=== PATIENT | female | born 1940 | race Caucasian/White ===

== ENCOUNTER 2016-11-05 11:50 | Emergency (ER) | payer MEDICARE, OTHER ==
[~2016-11-05] VITALS: Ht 167.6 cm; Wt 58.5 kg
[2016-11-05 12:11] VITALS: BP 174/111
== END 2016-11-05 14:52 | disposition home or self-care (01) ==
LOC: ER 11:50
DX: S00.83XA Contusion of other part of head, initial encounter (principal); W18.39XA Other fall on same level, initial encounter; Y93.01 Activity, walking, marching and hiking; Y92.89 Other specified places as the place of occurrence of the external cause; Y99.8 Other external cause status
CPT/HCPCS: 70450

== ENCOUNTER 2023-02-24 07:33 | Emergency (ER) | payer OTHER ==
[~2023-02-24] VITALS: Ht 167.6 cm; Wt 63.6 kg
[2023-02-24] MEDS ORDERED: ACETAMINOPHEN 500 MG TAB PO ONE (08:45)
[2023-02-24 09:30] VITALS: BP 148/92; PULSE 87; RESP 16; TEMP 98.4; O2SAT 97
[2023-02-24] MEDS ORDERED: ACET-1080 PO (09:33)
== END 2023-02-24 09:36 | disposition home or self-care (01) ==
LOC: ER 07:33
DX: S20.212A Contusion of left front wall of thorax, initial encounter (principal); W03.XXXA Other fall on same level due to collision with another person, initial encounter; Y93.89 Activity, other specified; Y92.89 Other specified places as the place of occurrence of the external cause; Y99.8 Other external cause status
CPT/HCPCS: 71101